=== PATIENT | male | born 2000 | race Caucasian/White ===

== ENCOUNTER 2021-07-11 11:40 | Outpatient (CLI) | payer OTHER ==
--- NOTE | 2021-07-11 17:13 | XRAY Report ---
PROCEDURE: Chest 2 View X-Ray INDICATIONS: UPPER RESPIRATORY INFECTION TECHNIQUE: 2 view(s) of the chest. COMPARISON: None. FINDINGS: Surgical changes and devices: None. Lungs and pleura: No pleural effusions or pneumothorax. Bilateral perihilar interstitial infiltrates , left greater than right, consistent with viral pneumonitis. Mediastinum: Mediastinal contours are normal. Heart size is normal. Bones and chest wall: No suspicious bony abnormalities. Soft tissues appear unremarkable. IMPRESSION: Findings are consistent with viral pneumonitis. Reviewed by: Balaji Davis MD on 07/11/2021 5:11 PM PDT Approved by: Balaji Davis MD on 07/11/2021 5:11 PM PDT Station ID: [id number]
== END 2021-07-11 23:59 | disposition home or self-care (01) ==
LOC: DI.N 11:40
PROVIDERS: ATTEND Physician Assistant Medical
DX: J06.9 Acute upper respiratory infection, unspecified (principal)